=== PATIENT | female | born 1965 | race Caucasian/White ===

== ENCOUNTER 2025-10-01 14:27 | Outpatient (AMB) | payer MEDICAID, SELFPAY ==
--- OUTSIDE RECORDS SUMMARY | 2019-06-14 23:00 | XMS_ITS | Encounter Summary ---
Author Organization [facility] Address [address] [place] [phone] Phone Care Team Providers Care Signal And Communications Maintainer Name Role Phone Casper Almanzar MD Primary Care Provider + Encounter Details Date Type Department Care Team (Late st Contact Info) Description 06/15/2019 Hospital Encounter [facility] OUTSIDE [address] [place] [address] Reynaldo Salas MD [address] [place] [address] [email or web address] Social History Tobacco Use Types Packs/Day Years Used Date Smoking Tobacco: Every Day Smokeless Tobacco: Never Education Answer Date Recorded Are you interested in more education? Not on marc e 03/15/2023 Are you concerned about learning? Not on file 03/15/2023 No 03/15/2023 No 03/15/2023 Digital Access Answer Date Recorded No 04/15/2023 No 04/15/2023 Reliable internet access at home? Not on file 04/15/2023 Device with a working camera? Not on file Comments Unknown Sex and Gender Information Value Date Recorded Sex Assigned at Female 02/24/2024 3:54 PM EDT Legal Sex Female 1:26 PM EDT Gender Identity Female 02/24/2024 3:54 PM EDT Sexual Orientation Straight 02/24/2024 3: 54 PM EDT documented as of this encounter Plan of Treatment Not on file documented as of this encounter Procedures Procedure Name Priority Date/Time Associated Diagnosis Comments MRI BRAIN OUTSIDE (NO INTERPRETATION) Routine 06/15/2019 12:00 AM EDT documented in this encounter Results * MRI Brain Outside (No Interpretation) (06/15/2019 12:00 AM EDT) Narrative [facility] INTERFACES - 09/27/2021 9:52 AM EST This study is for PACS storage only and not for interpretation. us Reynaldo Salas MD IMG OUTSIDE IMAGING W/OUT INTERP RETATION Final Result [facility] INTERFACES documented in this encounter Visit Diagnoses Not on filedocumented in this encounter Care Teams Signal And Communications Maintainer Relationship Specialty Start Date End Date Casper Almanzar MD 75 [facility] 1 [place] [address] PCP - General 01/17/16 documented as of this encounter Additional Source Comments The information contained in this document represents components of the legal health record. It is not the complete legal health record.[facility]
--- OUTSIDE RECORDS SUMMARY | 2019-06-14 23:05 | XMS_ITS | Encounter Summary ---
Author Organization [facility] Address [address] [place] [phone] Phone Care Team Providers Care Spa Therapist Name Role Phone Casper Almanzar MD Primary Care Provider + Encounter Details Date Type Department Care Team (Late st Contact Info) Description 06/15/2019 12:05 AM EDT Hospital Encounter [facility] [address] [place] [address] Lea Willett MD [address] [place] [id number] [email or web address] Social History Tobacco Use Types Packs/Day Years [...] as of this encounter Plan of Treatment Pending Results Name Type Priority Associated Diagnoses Date /Time MRI Brain Outside With Interpretation Or Consult Imaging Routine Schwannoma 06/15/2019 12:05 AM EDT Scheduled Orders Name Type Priority Associated Diagnoses Orde r Schedule MRI Brain Outside With Interpretation Or Consult Imaging Routine Schwannoma As Needed for 1 Occurrences starting 09/27/2021 until 09/27/2021 documented as of this encounter Visit Diagnoses Diagnosis Schwannoma Other benign neoplasm of connective and other soft tissue of unspecified site documented in this encounter Care Teams Spa Therapist Relationship Specialty Start Date End Date Casper Almanzar MD 75 [facility] 1 [place] [phone] PCP - General 01/17/16 documented as of this encounter Additional Source Comments The information contained in this document represents components of the legal health record. It is not the complete legal health record.[facility]
[2025-10-01 14:52] VITALS: BP 116/70; PULSE 78; O2SAT 98; BMI 20.8
--- NOTE | 2025-10-01 14:52 | MHC.OFFVIS ---
Vital Signs 10/01/25 14:52 Height 5 ft 7 in Weight 133 lb BMI 20.8 BP 116/70 Pulse 78 Pulse Oximetry (%) 98 Intake Visit Reasons: Family med/ [place] Fever bug bite Allergies sulfamethoxazole (From Bactrim) Allergy (Mild, Verified 10/01/25 14:56) Rash trimethoprim (From Bactrim) Allergy (Mild, Verified 10/01/25 14:56) Rash Penicillins Allergy (Verified 10/01/25 14:53) Rash z-pack Allergy (Mild, Uncoded 10/01/25 14:56) Rash shelfish derived Allergy (Unknown, Uncoded 10/01/25 14:58) Unknown HPI Comments Details: History of Present Illness The patient is a 60-year-old female presenting with an itchy papular lesion on her left arm associated with an insect bite occurring in August. She describes persistent pruritus for seven weeks without relief from administered antibiotics. She reports no systemic manifestations such as fever or chills. Her medical history of note includes facial schwannoma. Her condition remains site-specific with no observed lesion spread. Review of Systems - Skin: Reports persistent itchiness on the left arm. Denies rash elsewhere. - Constitutional: Denies fever or chills. - Respiratory: Denies symptoms. - Cardiovascular: Denies symptoms. - Gastrointestinal: Denies symptoms. - Neurological: Denies symptoms. Physical Exam - Vitals- Stable. - Skin- Itchy papules on the left arm as per the chart's picture. - Oropharynx- Clear. - Respiratory- Clear lung sounds. - Cardiovascular- Regular heart rhythm. - Abdomen- Soft, non-tender. - Extremities- Non-tender. Results Plan Patient was informed and verbally consented to the use of an ambient scribe for clinic note documentation during this visit. 1. Persistent Itchy Lesion Secondary To Insect Bite The patient presents with an itch without resolution post antibiotic treatment, suggesting non-bacterial etiology. Use of topical corticosteroids is recommended for symptomatic relief, with instructions to seek further dermatological advice if symptoms persist. 2. Facial Schwannoma Currently, the facial schwannoma remains a past problem, not requiring active management unless new symptoms develop. Discussion Notes I discussed with the patient the likely diagnosis of irritant dermatitis secondary to a previous insect bite. The benefits of topical corticosteroids in reducing inflammation and pruritus were explained. The patient consented to this treatment approach, with the understanding that a referral to dermatology may be necessary if symptoms persist. I emphasized the importance of monitoring the lesion for any changes, given the chronicity and persistence of symptoms. Medical Decision Making The persistent itching and lack of response to antibiotics suggest an irritant dermatitis or persistent inflammatory response due to an insect bite. While data for specific involvement of the [place] virus is inconclusive without distinct rash or systemic symptoms, the focus is on symptomatic management with corticosteroids. Dermatology follow-up is suggested if no improvement is noted, considering potential differential diagnoses. Further monitoring will ensure no secondary complications ensue. Patient Instructions - Apply topical steroids to the affected area on your left arm as directed to reduce itching. - Avoid scratching the area to prevent aggravating the lesion. - Contact a arboriculture instructor if the itching does not improve in a few weeks. - Monitor the site for changes or spread and seek medical attention if new symptoms occur. [facility] Medical History (Updated 10/01/25 @ 17:00 by Keren Goodman MD) Skin rash Physical Exam Vital Signs: Last Vital Signs Pulse 78 10/01/25 14:52 BP 116/70 10/01/25 14:52 Pulse Ox 98 10/01/25 14:52 BMI result Body Mass Index 20.8 Const Other: Assessment & Plan Assessment & Plan (1) Skin rash: Code(s): R21 - Rash and other nonspecific skin eruption Category: Medical Plan: as above Coding Level of Care Code New Pt Level 3 (43331) Diagnoses Skin rash R21
--- OUTSIDE RECORDS SUMMARY | 2025-10-01 21:30 | XMS_ITS | Encounter Summary ---
Author Organization [facility] Address [address] [place] [phone] Phone Care Team Providers Care Training Project Manager Name Role Phone Casper Almanzar MD Primary Care Provider + Encounter Details Date Type Department Care Team (Late st Contact Info) Description 12/17/2019 Ancillary Orders [facility],Outside Imaging [address] [place] [address] System, Provider Not In, [facility] [address] [address] Social History Tobacco Use Types Packs/Day Years Used Date Smoking Tobacco: Every Day Comments Unknown Sex and Gender Information Value Date Recorded Sex Assigned at Female 02/24/2024 3:54 PM EDT Legal Sex Female 1:26 PM EDT Gender Identity Female 02/24/2024 3:54 PM EDT Sexual Orientation Straight 02/24/2024 3: 54 PM EDT documented as of this encounter Plan of Treatment Not on file documented as of this encounter Results * MRI Brain Outside (No Interpretation) (06/15/2019 12:00 AM EDT) Narrative SYSTEMGENERATED, DOCUMENTATION - 12/17/2019 1:55 PM EST This study is for PACS storage only and not for interpretation. us Provider Not In System PhD IMG OUTSIDE IMAGING W /OUT INTERPRETATION Final Result documented in this encounter Visit Diagnoses Not on filedocumented in this encounter Care Teams Training Project Manager Relationship Specialty Start Date End Date Casper Almanzar MD [address] [place] [address] 1 [place] [address] PCP - General 01/17/16 documented as of this encounter Additional Source Comments The information contained in this document represents components of the legal health record. It is not the complete legal health record.[facility]
--- OUTSIDE RECORDS SUMMARY | 2025-10-01 21:30 | XMS_ITS | Clinical Summary ---
Author Organization [facility] Address [address] [address] Phone Care Team Providers Care General Agent Name Role Phone Casper Almanzar MD Primary Care Provider + Allergies Active Allergy Reactions Criticality Noted Date Comments Sulfamethoxazole-Trimethoprim 2020 Penicillins Rash Medium 03/23/2015 Medications fexofenadine (EVGENY) 60 MG tablet Take 60 mg by mouth daily. Active therapeutic multivitamin tablet Take 1 tablet by mouth daily. Active biotin 1 mg tablet Take 1,000 mcg by mouth 3 (three) times a day. Active b complex vitamins capsule Take 1 capsule by mouth daily. Active loratadine (CLARITIN) 10 mg tablet Take 10 mg by mouth daily. Active cefuroxime (CEFTIN) 250 MG tablet Take 1 tablet by mouth 2 (two) times a day. 3 Active rosuvastatin (CRESTOR) 5 MG tablet Take 1 tablet by mouth every morning. 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 MRI reportedly with facial nerve schwannoma. 2014: presented to Dr Zepeda / Dr Willett at [facility]. MRI with left IAC lesion. Audiogram with mild left SNHL. [id number]: followed with MRI locally with slight progression. Slight worsening of facial weakness. Immunizations Immunization Administration Dates Next Due COVID-19 (Pre-09/09) Pfizer Vaccine, mRNA, PF ,03/02/2021 Family History Medical History Relation Comments Cancer Father Relation Status Comments Father Social History Tobacco Use Types Packs/Day Years Used Date Smoking Tobacco: Every Day Smokeless Tobacco: Never Tobacco Cessation:Ready to Q uit: Not Asked; Counseling Given: Not Answered Education Answer Date Recorded Are you interested [...] Orientation Straight 02/24/2024 3: 54 PM EDT Last Filed Vital Signs Vital Sign Reading Time Taken Comments Blood Pressure 127/76 05/31/2020 10:47 AM EDT Pulse 81 12/24/2019 3:30 PM EST Temperature 36.8 C (98.2 F) 12/24/2019 3:30 PM EST Respiratory Rate - - Oxygen Saturation 97% 12/24/2019 3:30 PM EST Inhaled Oxygen Concentration - - Weight 61.2 kg (135 lb) 05/07/2024 12:43 PM EDT Height 170.2 cm (5' 7 ) 05/07/2024 12:43 PM EDT Body Mass Index 21.14 05/07/2024 12:43 PM EDT Plan of Treatment Health Maintenance Due Date Last Done Comments Adult Td,Tdap Booster 1963 LIPID PANEL 1963 DEPRESSION SCREENING 1975 SMOKING Hx and SMOKELESS TOBACCO SCREENING 1976 HEPATITIS C SCREENING 1981 HIV ONE-TIME SCREENING (18-6 5 YEARS) 1981 PNEUMOCOCCAL VACCINES (50+ years) (1 of 2 - PCV) 1982 PAP SMEAR 1984 MAMMOGRAM 2003 COLOGUARD 2008 COLONOSCOPY 2008 COLORECTAL CANCER SCREENING 2008 FIT TEST 2008 FOBT 2008 SIGMOIDOSCOPY 2008 VIRTUAL COLONOSCOPY 2008 ZOSTER VACCINES (1 of 2) 2013 INFLUENZA VACCINE (#1) 2025 COVID-19 VACCINE (3 - 2024-2 6 season) 2025 03/23/2021, 03/02/2021 RSV VACCINE (1 - 1-dose 75+ series) 2038 HEPATITIS A VACCINES Aged Out No long er eligible based on patient's age to complete this topic HIB VACCINES Aged Out No longer eligi ble based on patient's age to complete this topic IPV VACCINES Aged Out No longer eligi ble based on patient's age to complete this topic MENINGOCOCCAL VACCINES (ACWY) Aged Out No longer eligible based on patient's age to complete this topic MENINGOCOCCAL VACCINES (B) Aged Out N o longer eligible based on patient's age to complete this topic Medical Devices Not on file Insurance [facility] [employer]ANNAH CLARITY CONNECTORCARE [employer]LL[employer]ENSE NON NSPG PCP SILVER CLARITY CONNECTORCARE WELLSENSE NON NSPG PCP SILVER CLARITY CONNE[employer]CARE [employer] NON NSPG PCP SILVER CLARITY CONNECTORCARE [facility] NON NSPG PCP SILVER CLARITY CONNECTORCARE Care Teams General Agent Relationship Specialty Start Date End Date Casper Almanzar MD [address] [phone] (work) PCP - General 01/17/16 Additional Source Comments The information contained in this document represents components of the legal health record. It is not the complete legal health record.[facility]
--- OUTSIDE RECORDS SUMMARY | 2025-10-01 21:31 | XMS_ITS | Encounter Summary ---
Author Organization [facility] Address [address] [address] Phone Care Team Providers Care Dryland Farmer Name Role Phone Casper Almanzar MD Primary Care Provider + Encounter Details Date Type Department Care Team (Late st Contact Info) Description 02/21/2023 Procedure Pass [facility] Imaging - MRI, [facility] [address] [place] [address] Social History Tobacco Use Types Packs/Day Years Used Date Smoking Tobacco: Every Day Smokeless Tobacco: Never Comments Unknown Sex and Gender Information Value Date Recorded Sex Assigned at Female 02/24/2024 3:54 PM EDT Legal Sex Female 1:26 PM EDT Gender Identity Female 02/24/2024 3:54 PM EDT Sexual Orientation Straight 02/24/2024 3: 54 PM EDT documented as of this encounter Plan of Treatment Not on file documented as of this encounter Visit Diagnoses Not on filedocumented in this encounter Care Teams Dryland Farmer Relationship Specialty Start Date End Date Casper Almanzar MD [address] [place] [phone] PCP - General 01/17/16 documented as of this encounter Additional Source Comments The information contained in this document represents components of the legal health record. It is not the complete legal health record.[facility]
--- OUTSIDE RECORDS SUMMARY | 2025-10-01 21:31 | XMS_ITS | Encounter Summary ---
Author Organization [facility] Address [address] [address] Phone Care Team Providers Care Slot Floor Attendant Name Role Phone Casper Almanzar MD Primary Care Provider + Encounter Details Date Type Department Care Team (Late st Contact Info) Description 12/11/2022 Procedure Pass [facility] Imaging - MRI, [facility] [address] [place] [address] Social History Tobacco Use Types Packs/Day Years [...] on filedocumented in this encounter Care Teams Slot Floor Attendant Relationship Specialty Start Date End Date Casper Almanzar MD [address] [place] [phone] PCP - General 01/17/16 documented as of this encounter Additional Source Comments The information contained in this document represents components of the legal health record. It is not the complete legal health record.[facility]
== END 2025-10-01 15:22 | disposition home or self-care (01) ==
LOC: HO.HID 14:28
PROVIDERS: PCP Internal Medicine; Visit Provider Internal Medicine
DX: R21 Rash and other nonspecific skin eruption (principal)
CPT/HCPCS: 99203

== ENCOUNTER → 2025-10-01 14:27 | Outpatient (BNVA) | payer MEDICAID, SELFPAY | PROVIDERS: PCP Internal Medicine; Visit Provider Internal Medicine | DX: R21 Rash and other nonspecific skin eruption (principal) | CPT/HCPCS: 99202 ==